=== PATIENT | female | born 1995 | race Caucasian/White ===

== ENCOUNTER 2024-05-12 19:17 | Emergency (ER) | payer OTHER ==
[~2024-05-12] VITALS: Ht 170.2 cm; Wt 97.5 kg
[2024-05-12 20:03] VITALS: BP 133/84; TEMP 98; O2SAT 99
[2024-05-12] MEDS ORDERED: GELATIN SPONGE,ABSORBABLE 1 EA SPONGE TP ONE (20:14)
[2024-05-12] MEDS ORDERED: BACI30OI9 TP (20:18)
== END 2024-05-12 20:39 | disposition home or self-care (01) ==
LOC: ER 19:24
DX: S61.201A Unspecified open wound of left index finger without damage to nail, initial encounter (principal); Z91.030 Bee allergy status; W26.8XXA Contact with other sharp object(s), not elsewhere classified, initial encounter; Y93.89 Activity, other specified; Y92.89 Other specified places as the place of occurrence of the external cause; Y99.8 Other external cause status

== ENCOUNTER 2025-01-23 19:26 | Emergency (ER) | payer OTHER ==
[~2025-01-23] VITALS: Ht 170.2 cm; Wt 80.7 kg
[~2025-01-23 19:26] MED LIST: BACI30OI9 TP
[2025-01-23] MEDS ORDERED: ACETAMINOPHEN ES 500 MG TABLET ONE (21:36)
[2025-01-23] MEDS: ACETAMINOPHEN ES 500 MG TABLET PO ONE (21:39)
[2025-01-23] MEDS ORDERED: PROCHLORPERAZINE EDISYLATE 10 MG/2 ML VIAL ONE (21:46)
[2025-01-23 22:06] LABS: APPEARANCE,URINE SLIGHTLY CLOUDY (CLEAR); BLOOD, URINE NEGATIVE Ery/uL (NEGATIVE); LEUKOCYTE ESTERASE ,URINE TRACE (NEGATIVE); NITRITE, URINE NEGATIVE (NEGATIVE); UGLUCOSE NEGATIVE (NEGATIVE)
[2025-01-23] MEDS: IV NS 0.9% 1,000 ML BAG IV ONE (22:21)
[2025-01-23] MEDS: PROCHLORPERAZINE EDISYLATE 10 MG/2 ML VIAL IVP ONE (22:21)
[2025-01-23 22:26] LABS: PREGNANCY TEST URINE QUAL NEGATIVE (NEGATIVE)
[2025-01-23 22:28] LABS: CALCIUM, SERUM 9.5 mg/dL (8.5-10.1); CREATININE 0.7 mg/dL (0.6-1.3); SODIUM SERUM 139.0 mmol/L (136-145); UREA NITROGEN, BLOOD 20.0 mg/dL (7-18)
[2025-01-23 22:34] LABS: ADD URINE CULTURE NO; URINE AMORPHOUS PHOSPHATES Moderate /HPF (None Seen)
[2025-01-23 22:35] LABS: PLATELET COUNT (AUTO) 230 K/uL (150-450); RED BLOOD CELL COUNT(AUTO) 4.95 MIL/uL (4.0-5.2); RED CELL DISTRIBUTION WIDTH 14.2 % (11.5-15.0); WHITE BLOOD COUNT (AUTO) 8.9 K/uL (4.3-11.0)
[2025-01-23] MEDS ORDERED: ONDA4TAB11 PO (22:55)
[2025-01-23 23:05] VITALS: BP 133/69; TEMP 97.5; O2SAT 99
== END 2025-01-23 23:08 | disposition home or self-care (01) ==
LOC: ER 19:36
DX: E86.0 Dehydration (principal); R51.9 Headache, unspecified; R11.2 Nausea with vomiting, unspecified; R42 Dizziness and giddiness; Z79.899 Other long term (current) drug therapy; Z91.030 Bee allergy status
CPT/HCPCS: 99284; 96374; 96375; 85025; 80048; 84703; 81001; 36415; J0780; J1200; J7030